=== PATIENT | female | born 1955 | race Caucasian/White ===

== ENCOUNTER 2018-03-20 14:42 | Emergency (ER) | payer BC, OTHER ==
--- NOTE | 2018-03-20 15:59 | EDPHY ---
HPI/HX/ROS/PE/MDM Narrative: CHIEF COMPLAINT: Shortness of breath, hypoxemia, left rib discomfort. HISTORY OF PRESENT ILLNESS: This patient is a 62 year old female with history of type 2 diabetes, hypertension, SVT, remote history of heart surgery as a child. She presents with shortness of breath and left-sided rib discomfort. She is Visiting from [place]. [facility] to watch her son play hockey. She usually has altitude problems when she is visiting, but this time symptoms are more severe and lasting longer than usual. This includes shortness of breath, dizziness. She has a pulse oximeter and noted her SpO2 was in the 80s. Has had a cough for the past month with some increased shortness of breath. She complains of left posterior rib pain as well. This feels "like I should have a bruise there, but I don't." The pain is exacerbated by deep inspiration. No history of asthma, emphysema, CAD, blood clots. No fever, chills, chest pain, palpitations, vomiting, diarrhea, urinary complaints, headache. REVIEW OF SYSTEMS: A comprehensive 10 system review of systems is otherwise negative aside from elements mentioned in the history of present illness and medical decision making. PAST MEDICAL HISTORY: Diabetes mellitus type 2 (Invokamet). Hypertension. Pulmonary stenosis s/p surgery as a child. Heart murmur, follow up regularly with cardiologic. History of tachycardia s/p cardioversion. SOCIAL HISTORY: Visiting from [place]. . Employed. Here visiting her son who attends [employer]. Nonsmoker. VITAL SIGNS: Reviewed by me. 165/100, normal sat, no fever. GENERAL: Slightly overweight, pleasant, conversant, no respiratory distress noted. Sats 94% on room air. HEENT: Atraumatic. Eyes: No icterus, no injection. Mouth: moist mucous membranes. No erythema or lesions. Neck: supple with no adenopathy. LUNGS: Clear to auscultation bilaterally, no wheezes, rhonchi or rales. CHEST: No ecchymosis, rash on lateral left chest wall. No crepitus. Slightly tender to palpation. CARDIAC: Regular rate and rhythm, no rubs, murmurs or gallops. ABDOMEN: Soft, nontender, nondistended, bowel sounds normal. BACK: No CVA tenderness. EXTREMITIES: No trauma. No edema. Range of motion is normal throughout. NEURO: Alert and oriented, grossly nonfocal. SKIN: Warm and dry, no rash. PSYCHIATRIC: Normal mentation, no agitation. Portions of this note were transcribed by a mobile paramedical examiner. I personally performed a history, physical exam, medical decision making, and confirmed accuracy of information the transcribed note. ED Course: 62 year old female with history of type 2 diabetes, hypertension, SVT, presents with shortness of breath and left-sided rib discomfort. She has noted hypoxemia at home. Her SpO2 is 93% on room air here. Plan for EKG, chest x-ray, labs including CBC, chemistries, troponin, d-dimer, BNP. 16:30 POC troponin 0.00 Ddimer neg. Reviewed laboratory studies. BNP mildly elevated. Labs consistent with mild dehydration, otherwise unremarkable. D-dimer is negative. Reviewed chest x-ray. Chronic cardiomegaly. Evidence of compensated CHF but no florid CHF. No peripheral edema. Has been on diuretics in the past for peripheral edema. Will administer Lasix here to help a bit with the compensated CHF. Reassessed patient. Discussed imaging and laboratory studies. She has maintained good oxygen saturations on room air here in the department throughout her visit. Offered to arrange outpatient oxygen for patient to use while here at altitude. She is reassured by our readings and is planning to return to [place] in the morning. Declines O2. Plan to administer 20mg PO Lasix for symptom relief. Plan to discharge patient home in good condition. She will follow up with her primary care provider after returning to [place] tomorrow. I have also recommended she establish care with a electroplater and obtain further testing including echocardiogram. Follow up and return precautions discussed. The patient is comfortable with this plan. MDM: Differential diagnosis for the patient's shortness of breath was considered including but not limited to pulmonary infectious processes, COPD exacerbation, pulmonary emboli, pulmonary edema, congestive heart failure, and cardiac causes. - Data Points Imaging Results: Impression: Chronic cardiomegaly, compensated CHF and findings suspicious for pulmonary arterial hypertension. There is is patient have an atrial septal defect? 2 median sternotomy wires suggest prior open heart surgery. Dictated By : Ozzy Gooden MD Imaging: I viewed and interpreted images myself Laboratory Results: Laboratory Results 03/20/18 15:35 03/20/18 15:35 Medications Given: Discontinued Medications Furosemide (Lasix) 20 mg PO EDNOW ONE Stop: 03/20/18 17:32 Last Admin: 03/20/18 17:40 Dose: 20 mg Point of Care Test Results: Chemistry 03/20/18 16:21 POC Troponin I 0.00 ng/mL ng/mL (0.00-0.08) General Time Seen by Provider: 03/20/18 15:33 Initial Vital Signs: Initial Vital Signs Temperature (C) 36.5 C 03/20/18 14:49 Heart Rate 79 03/20/18 14:49 Respiratory Rate 18 03/20/18 14:49 Blood Pressure 165/100 H 03/20/18 14:49 O2 Sat (%) 94 03/20/18 14:49 O2 Delivery Mode Nasal Cannula O2 (L/minute) 2 Allergies/Adverse Reactions: latex Allergy (Verified 03/20/18 14:45) rosiglitazone [From Avandia] Allergy (Verified 03/20/18 14:45) Home Medications: Medication Instructions Recorded Aspirin 81mg (*) 03/20/18 FENOFIBRATE 03/20/18 Invokana 03/20/18 Levothyroxine 03/20/18 Metoprolol Succinate 03/20/18 Propafenone HCl ER 03/20/18 Valsartan 03/20/18 Departure - Departure Disposition: Home, Routine, Self-Care Clinical Impression: Dyspnea, Hypoxemia, Chest pain Condition: Good Instructions: Dyspnea (ED), Hypoxia (ED) Additional Instructions: Your oxygen level while in the emergency department has been in the normal range. The there is no evidence of a rib fracture, severe congestive heart failure, a heart attack, or acute coronary syndrome. However, if your symptoms are worsening before you return home, especially if you develop anterior chest pain , severe shortness of breath, nausea, vomiting, fevers, or other concerns, please return to the emergency department or seek care urgently. You do have evidence of some fluid in your lungs. You been given a small dose of Lasix to see if this helps your shortness of breath. When you return to [place], please follow-up with your primary care physician and electroplater. I would encourage you to obtain an echocardiogram. Referrals: DAMARIS ALEX [Other] - As per Instructions
[2018-03-20 16:30] LABS: PLATELET COUNT 285 10^3/uL (150-400)
[2018-03-20 17:17] VITALS: BP 149/85
[2018-03-20] MEDS ORDERED: FUROSEMIDE 20 MG TAB PO ONE (17:31)
--- NOTE | 2018-03-20 20:47 | CPEKG ---
Test Reason : OPEN Blood Pressure : / mmHG Vent. Rate : 080 BPM Atrial Rate : 082 BPM P-R Int : 164 ms QRS Dur : 123 ms QT Int : 430 ms P-R-T Axes : 055 058 064 degrees QTc Int : 497 ms Sinus rhythm Atrial premature complex Right bundle branch block Confirmed by Adelita Luque ([id number]) on 03/20/2018 8:47:17 PM Referred By: Confirmed By:Adelita Luque
== END 2018-03-20 18:16 | disposition home or self-care (01) ==
DX: R06.02 Shortness of breath (principal); R07.81 Pleurodynia; I10 Essential (primary) hypertension; E11.9 Type 2 diabetes mellitus without complications; Z79.4 Long term (current) use of insulin
CPT/HCPCS: 84484-ER